=== PATIENT | male | born 1970 | race Native Hawaiian/Other Pacific Islander ===

== ENCOUNTER 2016-08-04 07:31 | Outpatient (CLI) | payer OTHER ==
--- NOTE | 2016-08-04 08:27 | Cat Scan Report ---
CT HEAD WITHOUT CONTRAST INDICATION: Headaches, vision loss. COMPARISON: None similar. FINDINGS: Noncontrast head CT demonstrates normal ventricles and overall age-appropriate sulci. Slight bilateral extra-axial CSF prominence with maximum bifrontal thickness of approximately 2 mm on the right and 3 mm on the left may represent mild atrophy/minimal bifrontal chronic subdural hygromas. No acute infarct, hemorrhage, mass effect or midline shift. Normal posterior fossa with preserved basilar cisterns. Normal eye globes. Slight bilateral maxillary sinus mucosal thickening. Clear remainder imaged paranasal sinuses and mastoid air cells. Intact calvarium. Normal scalp. CONCLUSION: No acute intracranial CT abnormality with findings, as described. Thank you for the opportunity to participate in this patient's care.
== END 2016-08-04 07:32 | disposition home or self-care (01) ==
LOC: CT 07:31
PROVIDERS: ATTEND Internal Medicine
DX: G43.909 Migraine, unspecified, not intractable, without status migrainosus (principal); H54.7 Unspecified visual loss
CPT/HCPCS: 70450

== ENCOUNTER 2019-05-21 19:00 | Observation (INO) | payer OTHER ==
--- NOTE | 2019-05-21 19:17 | Emergency Department Report ---
Blank Doc - Documentation Documentation: 49-year-old male that presents with chest pain and SOB. This initial assessment/diagnostic orders/clinical plan/treatment(s) is/are subject to change based on patient's health status, clinical progression and re- assessment by fellow clinical providers in the ED. Further treatment and workup at subsequent clinical providers discretion. Patient/guardians urged not to elope from the ED as their condition may be serious if not clinically assessed and managed. Initial orders include: 1- Patient sent to MAIN ED for further evaluation and treatment 2- labs 3- EKG 4- CXR
--- NOTE | 2019-05-21 19:41 | XRay Report ---
CHEST 2 VIEWS INDICATION / CLINICAL INFORMATION: Chest Pain. COMPARISON: 03/03/2013 FINDINGS: SUPPORT DEVICES: None. HEART / MEDIASTINUM: No significant abnormality. LUNGS / PLEURA: No significant pulmonary or pleural abnormality. No pneumothorax. ADDITIONAL FINDINGS: No significant additional findings. IMPRESSION: 1. No acute findings. Signer Name: Jose Mahoney MD Signed: 05/21/2019 7:37 PM Workstation Name: [id number]
[2019-05-21 20:16] LABS: Basophils % (Auto) 0.6 % (0.0-1.8); Eosinophils # (Auto) 0.2 K/mm3 (0.0-0.4); Eosinophils % (Auto) 3.5 % (0.0-4.3); Hematocrit 43.5 % (35.5-45.6); Hemoglobin 15.4 gm/dl (11.8-15.2); Lymphocytes # (Auto) 1.1 K/mm3 (1.2-5.4); Lymphocytes % (Auto) 15.5 % (13.4-35.0); Mean Corpuscular HGB Conc 36 % (32-34); Mean Corpuscular Volume 88 fl (84-94); Monocytes # (Auto) 0.5 K/mm3 (0.0-0.8); Monocytes % (Auto) 6.9 % (0.0-7.3); Platelet Count 204 K/mm3 (140-440); Red Blood Count 4.96 M/mm3 (3.65-5.03); Red Cell Distribution Width 13.2 % (13.2-15.2)
[2019-05-21 20:24] LABS: INR 0.99 (0.87-1.13)
[2019-05-21 20:25] LABS: Partial Thromboplastin Time 30.1 Sec. (24.2-36.6)
[2019-05-21] MEDS ORDERED: NITROGLYCERIN 0.4 MG TAB SUBL SL PRN (20:38)
[2019-05-21] MEDS ORDERED: ASPIRIN 325 MG TAB PO ONE (20:38)
[2019-05-21 20:39] LABS: Alanine Aminotransferase 28 units/L (7-56); BUN/Creatinine Ratio 19; Blood Urea Nitrogen 19 mg/dL (9-20); Calcium 8.8 mg/dL (8.4-10.2); Hemolysis Index 36
--- NOTE | 2019-05-21 21:39 | Emergency Department Report ---
ED Chest Pain HPI - General Chief Complaint: Chest Pain Stated Complaint: SANG Time Seen by Provider: 05/21/19 19:16 Source: patient Mode of arrival: Ambulatory Limitations: No Limitations - History of Present Illness Initial Comments: 49-year-old male with history of hypertension presents to ED with chest pain. Patient states pain is substernal, nonradiating. He describes the pain as tightness. Onset of pain approximately one hour ago while watching TV. Patient reports associated mild shortness of breath. He denies any fever, cough, leg pain or swelling. MD Complaint: chest pain -: hour(s) (1) Onset: during rest Pain Location: substernal Pain Radiation: none Severity: moderate Quality: tightness Consistency: constant Improves With: nothing Worsens With: nothing re: dyspnea. denies: nausea, vomting, diaphoresis Other Symptoms: denies: cough, fever, leg swelling Treatments Prior to Arrival: none - Related Data Home Medications Medication Instructions Recorded Confirmed Last Taken lisinopriL [Zestril TAB] 10 mg PO QDAY 05/22/19 05/22/19 Unknown Previous Rx's Medication Instructions Recorded Last Taken Type Pantoprazole [Protonix] 40 mg PO QDAY #14 tablet 05/22/19 Unknown Rx Allergies Allergy/AdvReac Type Severity Reaction Status Date / Time No Known Allergies Allergy Verified 05/21/19 19:08 Heart Score - HEART Score History: Moderately suspicious EKG: Normal Age: 45-65 Risk factors: 1-2 risk factors Troponin: < normal limit HEART Score: 3 ED Review of Systems ROS: Stated complaint: SANG Other details as noted in HPI Comment: All other systems reviewed and negative Constitutional: denies: chills, fever Respiratory: shortness of breath Cardiovascular: chest pain Gastrointestinal: denies: nausea, vomiting Musculoskeletal: other (denies leg pain or swelling) ED Past Medical Hx - Past Medical History Previous Medical History?: No - Surgical History Past Surgical History?: No - Social History Smoking Status: Never Smoker Substance Use Type: Alcohol - Medications Home Medications: Home Medications Medication Instructions Recorded Confirmed Last Taken Type Pantoprazole [Protonix] 40 mg PO QDAY #14 tablet 05/22/19 Unknown Rx lisinopriL [Zestril TAB] 10 mg PO QDAY 05/22/19 05/22/19 Unknown History ED Physical Exam - General Limitations: No Limitations General appearance: alert, in no apparent distress - Head Head exam: Present: atraumatic, normocephalic - Eye Eye exam: Present: normal appearance, EOMI - ENT ENT exam: Present: mucous membranes moist - Neck Neck exam: Present: normal inspection - Respiratory Respiratory exam: Present: normal lung sounds bilaterally. Absent: respiratory distress - Cardiovascular Cardiovascular Exam: Present: regular rate, normal rhythm - GI/Abdominal GI/Abdominal exam: Present: soft. Absent: distended, tenderness - Extremities Exam Extremities exam: Present: normal inspection. Absent: pedal edema, calf tenderness - Neurological Exam Neurological exam: Present: alert, oriented X3 - Psychiatric Psychiatric exam: Present: normal affect, normal mood - Skin Skin exam: Present: warm, dry, intact, normal color ED Course Vital Signs 05/21/19 05/21/19 05/21/19 19:12 19:17 19:45 Temperature 97.8 F 97.8 F Pulse Rate 77 80 78 Respiratory 18 18 8 L Rate Blood Pressure 151/96 151/96 O2 Sat by Pulse 96 97 95 Oximetry 05/21/19 05/21/19 05/21/19 20:01 20:11 20:21 Temperature Pulse Rate 78 78 77 Respiratory 16 14 10 L Rate Blood Pressure 141/90 141/90 141/90 O2 Sat by Pulse 95 94 95 Oximetry 05/21/19 05/21/19 05/21/19 20:31 20:41 20:48 Temperature Pulse Rate 81 86 91 H Respiratory 13 14 Rate Blood Pressure 141/90 141/90 136/91 O2 Sat by Pulse 95 93 Oximetry 05/21/19 05/21/19 05/21/19 20:51 21:00 21:11 Temperature Pulse Rate 99 H 89 91 H Respiratory 11 L 16 16 Rate Blood Pressure 136/91 143/87 143/87 O2 Sat by Pulse 91 92 93 Oximetry 05/21/19 05/21/19 05/21/19 21:21 21:31 21:41 Temperature Pulse Rate 88 90 84 Respiratory 20 23 19 Rate Blood Pressure 136/91 136/91 136/91 O2 Sat by Pulse 93 93 95 Oximetry 05/21/19 05/21/19 05/21/19 21:51 22:01 22:11 Temperature Pulse Rate 88 84 83 Respiratory 17 20 20 Rate Blood Pressure 136/91 136/91 136/91 O2 Sat by Pulse 94 94 94 Oximetry 05/21/19 22:21 Temperature Pulse Rate 85 Respiratory 13 Rate Blood Pressure 132/90 O2 Sat by Pulse 97 Oximetry IMANI score - Imani Score Age > 65: (0) No Aspirin use within the Past 7 Days: (0) No 3 or more CAD Risk Factors: (0) No 2 or more Angina events in past 24 hrs: (0) No Known CAD with more than 50% Stenosis: (0) No Elevated Cardiac Markers: (0) No ST Deviation Greater than 0.5mm: (0) No IMANI Score: 0 ED Medical Decision Making - Lab Data Result diagrams: 05/22/19 06:56 05/22/19 06:56 - EKG Data -: EKG Interpreted by Me EKG shows normal: sinus rhythm, axis, intervals, QRS complexes, ST-T waves Rate: normal - EKG Data Interpretation: no acute changes - Radiology Data Radiology results: report reviewed, image reviewed - Differential Diagnosis ACS, PE, pneumonia Critical care attestation.: If time is entered above; I have spent that time in minutes in the direct care of this critically ill patient, excluding procedure time. ED Disposition Clinical Impression: Acute chest pain Disposition: OP ADMIT IP TO THIS HOSP Is pt being admited?: Yes Condition: Stable Time of Disposition: 21:41
[2019-05-21] MEDS ORDERED: ACETAMINOPHEN 325 MG TAB PO PRN (22:02)
[2019-05-21] MEDS ORDERED: oxyCODONE /ACETAMINOPHEN 5-325MG TAB PO PRN (22:02)
[2019-05-21] MEDS ORDERED: ONDANSETRON 4 MG/2 ML INJ IV PRN (22:02)
--- NOTE | 2019-05-21 22:13 | History and Physical Report ---
History of Present Illness History of present illness: 49-year-old man with a history of hypertension comes to the emergency room complaints of chest pain that started today. Patient stated that pain is in the epigastric area which he is unable to describe, constant, intensity 5/10, radiating to the right shoulder, cannot identify exacerbating factors. Admits to shortness of breath, no diaphoresis, palpitation, nausea vomiting,he is being admitted for further work-up of chest pain Review Of Systems: Constitutional: no weight loss, fever, chills Ears, eyes, nose, mouth and throat: no nasal congestion, no nasal discharge, no sinus pressure, blurry vision, diplopia Neck: No neck pain or rigidity. Cardiovascular: No palpitations Respiratory: No s cough Gastrointestinal: No hematochezia, abdominal pain Genitourinary : no dysuria, frequency , hematuria Musculoskeletal: no muscle ache , joint pain Integumentary: no rash, no pruritis Neurological: no parathesias, focal weakness Endocrine: no cold or heat intolerance, no polyuria or polydipsia Hematologic/Lymphatic: no easy bruising, no easy bleeding, no gland swelling Allergic/Immunologic: no urticaria, no angioedema. PAST MEDICAL HISTORY: hypertension PAST SURGICAL HISTORY: None FAMILY HISTORY:hypertension, diabetes SOCIAL HISTORY: Denies tobacco, drugs, social alcohol Medications and Allergies Allergies Allergy/AdvReac Type Severity Reaction Status Date / Time No Known Allergies Allergy Verified 05/21/19 19:08 Home Medications Medication Instructions Recorded Confirmed Last Taken Type Amoxicillin [Trimox CAP] 500 mg PO QID #40 capsule 03/03/13 Unknown Rx Fluticasone Propionate [Flonase] 2 sprays NS DAILY #1 spray.susp 03/03/13 Unknown Rx Loratadine (Nf) [Claritin] 10 mg PO DAILY #30 tablet 03/03/13 Unknown Rx Prednisone 40 mg PO QDAY #10 tablet 03/03/13 Unknown Rx Promethazine /Codeine 5 ml PO Q6H PRN #150 udc 03/03/13 Unknown Rx [Phenergan/Codeine 6.25-10 mg/5 ml] Active Meds: Active Medications Acetaminophen (Tylenol) 650 mg PO Q4H PRN PRN Reason: Pain MILD(1-3)/Fever >100.5/MEJIA Enoxaparin Sodium (Enoxaparin) 40 mg SUB-Q QDAY@1000 LETICIA Nitroglycerin (Nitrostat) 0.4 mg SL .Q5MIN PRN PRN Reason: Chest Pain Last Admin: 05/21/19 20:48 Dose: 0.4 mg Documented by: Ondansetron HCl (Zofran) 4 mg IV Q8H PRN PRN Reason: Nausea And Vomiting Oxycodone/Acetaminophen (Percocet 5/325) 1 tab PO Q6H PRN PRN Reason: Pain, Moderate (4-6) Sodium Chloride (Sodium Chloride Flush Syringe 10 Ml) 10 ml IV BID LETICIA Sodium Chloride (Sodium Chloride Flush Syringe 10 Ml) 10 ml IV PRN PRN PRN Reason: LINE FLUSH Exam - Physical Exam Narrative exam: General Apperance: The patient sitting in bed no acute distress HEENT: Normocephalic, atraumatic. Pupils equally round and reactive to light, extraocular movement intact, and no sclericterus or JVD or thyromegaly or nodule. Neck supple, no carotid bruit, mucous membranes moist, no exudate or erythema Heart: S1-S2, regular is rhythm Lungs: Clear to auscultation bilaterally, breathing comfortable Abdomen: Positive bowel sounds, soft, nontender, nondistended, no organomegaly Extremities: No edema cyanosis clubbing Skin: no rash, nodule, warm and dry Neuro:CN 2 -12 intact, motor/sensory intact, speech is fluent - Constitutional Vitals: Temp Pulse Resp BP Pulse Ox 97.8 F 91 H 16 136/91 95 05/21/19 19:17 05/21/19 20:48 05/21/19 20:01 05/21/19 20:48 05/21/19 20:01 Results - Labs CBC & Chem 7: 05/21/19 20:01 05/21/19 20:01 Labs: Abnormal lab results 05/21/19 05/21/19 Range/Units 20:01 20:01 Hgb 15.4 H (11.8-15.2) gm/dl MCHC 36 H (32-34) % Lymph # 1.1 L (1.2-5.4) K/mm3 Seg Neutrophils % 73.5 H (40.0-70.0) % Glucose 170 H (75-100) mg/dL Assessment and Plan Assessment Chest pain Check cardiac enzymes, obtain stress test Start aspirin, Percocet DVT prophylaxis
[2019-05-22 00:50] LABS: Creatine Kinase MB 1.9 ng/mL (0.0-4.0)
[2019-05-22 07:07] LABS: Basophils % (Auto) 0.4 % (0.0-1.8); Eosinophils # (Auto) 0.1 K/mm3 (0.0-0.4); Eosinophils % (Auto) 1.2 % (0.0-4.3); Hematocrit 45.1 % (35.5-45.6); Hemoglobin 15.6 gm/dl (11.8-15.2); Lymphocytes # (Auto) 1.1 K/mm3 (1.2-5.4); Lymphocytes % (Auto) 12.8 % (13.4-35.0); Mean Corpuscular HGB Conc 35 % (32-34); Mean Corpuscular Volume 88 fl (84-94); Monocytes # (Auto) 0.8 K/mm3 (0.0-0.8); Monocytes % (Auto) 8.8 % (0.0-7.3); Platelet Count 205 K/mm3 (140-440); Red Blood Count 5.12 M/mm3 (3.65-5.03); Red Cell Distribution Width 13.3 % (13.2-15.2)
[2019-05-22 07:27] LABS: Creatine Kinase MB 1.4 ng/mL (0.0-4.0)
[2019-05-22 07:28] LABS: BUN/Creatinine Ratio 16; Blood Urea Nitrogen 14 mg/dL (9-20); Calcium 8.9 mg/dL (8.4-10.2); Hemolysis Index 7
[2019-05-22] MEDS ORDERED: ENOXAPARIN 30 MG/0.3 ML INJ SUB-Q SCH (10:00)
[2019-05-22] MEDS ORDERED: ENOXAPARIN 40 MG/0.4 ML INJ SUB-Q SCH (10:00)
--- NOTE | 2019-05-22 14:35 | Discharge Summary ---
Providers - Providers Date of Admission: 05/21/19 22:02 Date of discharge: 05/22/19 Attending physician: BLADE STEARNS Primary care physician: EQUIPMENT MAINTENANCE TECHNICIAN Hospitalization Reason for admission: Atypical chest pain Condition: Stable Pertinent studies: Chest x-ray; no acute abnormality noted Exercise stress test; no ischemia Hospital course: 49-year-old man with a history of hypertension comes to the emergency room complaints of chest pain that started today. Patient stated that pain is in the epigastric area which he is unable to describe, constant, intensity 5/10, radiating to the right shoulder, cannot identify exacerbating factors. Admits to shortness of breath, no diaphoresis, palpitation, nausea vomiting,he is being admitted for further work-up of chest pain. Symptomatically managed,Stress test negative ischemia. Chest pain atypical,probably due to GERD/musculoskeletal pain. Today patient is comfortable,no new complaints Vital signs stable Physical exam unremarkable. Stable at discharge Discharge Diagnosis --Atypical chest pain; Negative stress test, normal ejection fraction Prelim report per laundry or dry cleaners counter clerk Dr. James Guzman Pain medications; Protonix --Chest pain probably secondary to GERD; Protonix, dietary modification --History of hypertension; Well controlled, continue lisinopril Patient is hemodynamically and clinically stable at discharge Advised to follow primary care physician within 1 week Advised to see laundry or dry cleaners counter clerk should he have recurrent chest pain or shortness of breath Stable at discharge Disposition: MS-01 TO HOME OR SELFCARE Time spent for discharge: 32 min Core Measure Documentation - Palliative Care Palliative Care/ Comfort Measures: Not Applicable - Core Measures Any of the following diagnoses?: none Exam - Constitutional Vitals: Temp Pulse Resp BP Pulse Ox 98.2 F 104 H 18 127/90 96 05/22/19 11:42 05/22/19 11:42 05/22/19 11:42 05/22/19 11:42 05/22/19 11:42 General appearance: Present: no acute distress, well-nourished - EENT Eyes: Present: PERRL, EOM intact - Neck Neck: Present: supple, normal ROM - Respiratory Respiratory effort: normal Respiratory: bilateral: diminished, negative: rales, rhonchi, wheezing - Cardiovascular Rhythm: regular Heart Sounds: Present: S1 & S2 - Extremities Extremities: no ischemia, No edema - Abdominal General gastrointestinal: Present: soft, non-tender, non-distended, normal bowel sounds - Integumentary Integumentary: Present: clear, warm - Musculoskeletal Musculoskeletal: strength equal bilaterally - Psychiatric Psychiatric: appropriate mood/affect, cooperative - Neurologic Neurologic: CNII-XII intact, moves all extremities Plan Activity: no restrictions Diet: low salt Additional Instructions: If you have recurrent chest pain, contact MD or go to emergency room. or Follow-up with laundry or dry cleaners counter clerk as needed Follow up with: PRIMARY CARE, [Primary Care Provider] - 3-5 Days LEANA GONZALEZ MD [Staff Physician] - 7 Days Forms: Work/School Release Form Prescriptions: Pantoprazole [Protonix] 40 mg PO QDAY #14 tablet
--- NOTE | 2019-05-22 15:57 | Treadmill Report ---
STRESS EKG REPORT This is being done on 49-year-old gentleman with the chest pain. Baseline EKG showed sinus rhythm at 81 beats per minute, within normal limits. The patient exercised for 10 minutes and 20 seconds on standard Porfirio protocol, attained a heart rate of 153 beats per minute, which is more than 100% of predicted maximal heart rate. Test was stopped due to a shortness of breath and fatigue. The patient had minor anterior chest discomfort, which improved with the exercise. No EKG changes to suggest ischemia. A blood pressure response was hypertensive with resting blood pressure of 144/98 and peak blood pressure of 170/104. FINAL IMPRESSION: 1. Good exercise tolerance. 2. Negative for angina and negative for ischemia. 3. Hypertensive blood pressure response is noted. JOB# [id number] JESUS/TJ
[2019-05-22 16:04] VITALS: BP 140/95
== END 2019-05-22 18:54 | disposition home or self-care (01) ==
LOC: ED 19:00 → 4A 22:02
PROVIDERS: ADMIT Internal Medicine; ATTEND Internal Medicine
DX: R07.89 Other chest pain (principal); I10 Essential (primary) hypertension; Z79.899 Other long term (current) drug therapy
CPT/HCPCS: 36415; 71046; 80048; 80053; 82550; 82553; 84484; 85025; 85379; 85610; 85730; 93005; 93010; 93017; 96372; 99284; G0378; J1650